=== PATIENT | male | born 1995 | race African-American/Black ===

== ENCOUNTER 2020-09-26 15:18 | Outpatient (CLI) | payer BC, SELFPAY ==
--- NOTE | ~2020-09-26 | MR_ITS ---
EXAMINATION: MR ankle LT wo con DATE: 09/26/2020 16:16 INDICATION: Left ankle pain. TECHNIQUE: Magnetic resonance imaging (MRI) of the left ankle was performed without intravenous contr ast. Sequences included sagittal PD-weighted FS FSE, sagittal PD-weighted FSE, coronal PD-weighted FS FSE, coronal PD-weighted FSE, axial PD-weighted FS FSE, and axial PD-weighted FSE. COMPARISON: None. FINDINGS: Medial ankle ligaments: The superficial and deep components of the deltoid ligament are intact. Lateral ankle ligaments: There are changes of prior sprains of the anterior talofibular ligament and calcaneofibular ligament characterized by thickening and increased signal intensity. Posterior talofibular ligament is normal. The anterior and posterior tibiofibular ligaments are normal. Tendons: The medial ankle tendons are normal. There is mild tenosynovitis of flexor hallucis longus. The anter ior ankle tendons are normal. The perioneal tendons are normal. There is severe Achilles tendinopathy . There is a complete tear of Achilles tendon 7.5 cm proximal to the distal insertion with tendon gap measuring 3 cm. Plantar fascia: Normal. Bones/other: Bone alignment is normal. No fracture. The talar dome is normal. Fluid: There is no joint effusion. IMPRESSION: 1. Severe Achilles tendinopathy and complete tendon tear. 2. Changes of prior lateral ankle sprain. Reviewed, dictated and finalized at location B.
== END 2020-09-26 15:19 ==
PROVIDERS: Visit Provider Orthopaedic Surgery
DX: S86.012A Strain of left Achilles tendon, initial encounter (principal); X58.XXXA Exposure to other specified factors, initial encounter
CPT/HCPCS: 73721